=== PATIENT | male | born 1965 | race Asian ===

== ENCOUNTER 2021-09-26 20:33 | Observation (INO) | payer MEDICARE, MEDICAID, SELFPAY ==
--- NOTE | ~2021-09-26 | XR_ITS ---
EXAMINATION: XR CHEST CLINICAL INFORMATION: Chest pain COMPARISON: None TECHNIQUE: Frontal view of the chest was obtained. FINDINGS: No significant abnormality is noted involving the heart, lungs, mediastinum, bony thorax or soft tissues. Sternotomy wires from prior thoracotomy. XR/XR chest 1V IMPRESSION: Normal chest x-ray.
--- NOTE | ~2021-09-26 | CT_ITS ---
EXAMINATION: CT ANGIOGRAM OF THE CHEST WITH AND WITHOUT CONTRAST (CT PULMONARY ANGIOGRAM FOR PE) CLINICAL INFORMATION: Reason for Exam chest pain, covid positive COMPARISON: Chest x-ray 09/26/2021 TECHNIQUE: Prior to contrast administration, noncontrast localization images were obtained. Subsequently, multidetector volumetric imaging was performed from the thoracic inlet to below the diaphragms following the administration of 65 mL Omnipaque 350 intravenous contrast. Sagittal, coronal, and MIP oblique sagittal reformatted images were obtained on the CT workstation, uploaded to PACS, and reviewed. This CT examination was performed using dose optimization techniques as appropriate, variously including the following: *Automated exposure control *Adjustment of mA and/or kV according to patient size (this includes techniques or standardized protocols for targeted exams where dose is matched to indication/reason for exam; i.e. extremities or head) *Use of iterative reconstruction technique Total exam dose-length product 272 mGy-cm FINDINGS: QUALITY OF STUDY/CONTRAST BOLUS: Satisfactory. PULMONARY ARTERIES: No evidence of filling defects to suggest central or segmental pulmonary emboli. THORACIC AORTA: No aneurysm or dissection. LUNG: No focal consolidation seen. No significant nodules or masses. PLEURA: No pleural effusion or pneumothorax. MEDIASTINUM: Normal heart size. No pericardial effusion. No hilar or mediastinal lymphadenopathy. No evidence of septal bowing or right heart strain. Surgical clips in the mediastinum. CHEST WALL/AXILLA: No axillary or internal mammary lymphadenopathy. OSSEOUS STRUCTURES: No acute or suspicious osseous abnormality. Mild thoracic spondylosis. Sternotomy wires. UPPER ABDOMEN: No acute findings. No reflux of contrast into the hepatic veins to suggest elevated right heart pressures. CT/CT angio chest PE protocol IMPRESSION: 1. No evidence of central or segmental pulmonary emboli. 2. No focal consolidation. VTE: negative
[2021-09-26 20:39] VITALS: BP 165/86; BP 171/84; PULSE 66; PULSE 80; RESP 20; TEMP 37; O2SAT 98; BMI 23.2
--- NOTE | 2021-09-26 20:45 | ECG_ITS ---
Test Reason : CHEST PAIN Blood Pressure : / mmHG Vent. Rate : 068 BPM Atrial Rate : 068 BPM P-R Int : 176 ms QRS Dur : 074 ms QT Int : 386 ms P-R-T Axes : 049 019 089 degrees QTc Int : 410 ms Normal sinus rhythm Nonspecific ST abnormality Inferior leads Lateral leads ST elevation in Septal leads Abnormal ECG No previous ECGs available Referred By: Generic ED Physician Electronically Signed By:MORGAN COVINGTON MD
[2021-09-26 20:53] LABS: MANUAL DIFF FLAG NO
[2021-09-26 20:59] LABS: Basophils Percent Auto 0.2 % (0-2); Eosinophils Absolute Auto 0.1 X10*3/uL (0.0-0.4); Eosinophils Percent Auto 1.6 % (0-4); Hematocrit 38.3 % (42.0-52.0); Hemoglobin 12.7 g/dl (14.0-18.0); Imm Gran Abs Auto 0.02 X10*3/uL (0.00-0.03); Imm Gran Pct Auto 0.3 % (0.0-0.4); Lymphocytes Absolute Auto 1.5 X10*3/uL (1.2-4.9); Mean Corpuscular HGB Conc 33.2 g/dl (31.0-36.0); Mean Corpuscular Hemoglobin 28.5 pg (27.0-33.0); Mean Corpuscular Volume 86.1 fL (80.0-98.0); Mean Platelet Volume 10.8 fL (9.4-12.4); Monocytes Absolute Auto 0.8 X10*3/uL (0.1-1.2); Monocytes Percent Auto 12.3 % (2-11); Neutrophils Absolute Auto 3.9 x10*3/uL (2.0-8.3); Neutrophils Percent Auto 61.6 % (45-73); Platelet Count 182 X10*3/uL (160-400); Red Blood Count 4.45 X10*6/uL (4.60-5.80); Red Cell Distribution Width 13.6 % (11.0-16.0); White Blood Count 6.3 X10*3/uL (4.8-10.8)
[2021-09-26 21:05] LABS: INTERNATIONAL NORM RATIO 1.1 (0.9-1.1); Prothrombin Time 12.4 SEC (9.9-13.0)
[2021-09-26 21:06] LABS: D Dimer High Sensitivity 157 NG/ML
--- NOTE | 2021-09-26 21:08 | ED_ITS ---
HPI - Chest Pain General Chief Complaint: Chest Pain Stated Complaint: HEAVY CHEST PAIN W/L ARM NUMBNESS ALL DAY Time Seen by Provider: 09/26/21 21:02 History of Present Illness HPI narrative: This is a 56-year-old male with a history of coronary artery bypass graft. The patient had onset at rest today of left-sided chest pain with a feeling of numbness in his left arm. Pain has been constant. It is about 5/10. Patient has did recently have hemorrhoid surgery at [facility] and states he had had an EKG done there prior to surgery. The patient has slight shortness of breath, denies nausea. He did note earlier tonight that his blood pressure was elevated. He denies any pain or swelling in his legs. The patient notes that since his hemorrhoid surgery done earlier this week at [facility] he has had severe pain around the rectum. The hemorrhoids were external. The patient has been using oxycodone and tramadol and ibuprofen without relief. Related Data Home Medications Medication Instructions Recorded Confirmed aspirin 81 mg tablet 81 mg PO DAILY 09/26/21 09/26/21 ibuprofen 600 mg tablet 600 tab PO DAILY 09/26/21 09/26/21 lactulose 10 gram/15 mL oral 15 ml PO DAILY 09/26/21 09/26/21 solution lorazepam 1 mg tablet 1 mg PO QID PRN 09/26/21 09/26/21 metformin 500 mg tablet,extended 2 tab PO BID 09/26/21 09/26/21 release 24 hr metoprolol tartrate 25 mg tablet 1 tab PO BID 09/26/21 09/26/21 oxycodone 5 mg tablet 1 tab PO QID PRN 09/26/21 09/26/21 pantoprazole 40 mg tablet,delayed 1 tab PO DAILY 09/26/21 09/26/21 release rosuvastatin 20 mg tablet 1 tab PO BEDTIME 09/26/21 09/26/21 sitagliptin 100 mg tablet (Januvia) 1 tab PO DAILY 09/26/21 09/26/21 tamsulosin 0.4 mg capsule 1 cap PO DAILY 09/26/21 09/26/21 tramadol 50 mg tablet 1 tab PO Q6H PRN 09/26/21 09/26/21 Allergies Allergy/AdvReac Type Severity Reaction Status Date / Time No Known Allergies Allergy Verified 09/26/21 20:45 Review of Systems Review of Systems: Yes all other systems are reviewed and are negative Constitutional: Constitutional: Reports as per HPI, Denies excessive sweating and Denies fever(s) Eyes: Eyes: Reports as per HPI and Reports no additional eye complaints ENT: Reports system reviewed and no additional complaints, except as d ocumented, Reports as per HPI, Denies nasal congestion, Denies nasal discharge and Denies sore throat Cardiovascular: Cardiovascular: Reports as per HPI, Reports chest pain and Reports dyspnea Respiratory: Respiratory: Reports as per HPI, Denies cough and Reports dyspnea Gastrointestinal: Gastrointestinal: Reports as per HPI, Denies abdominal pain, Denies diarrhea, Denies nausea and Denies vomiting Genitourinary: Genitourinary: Reports as per HPI, Denies hematuria, Denies dysuria and Denies urinary frequency Musculoskeletal: Musculoskeletal: Reports no additional musculoskeletal complaints and Denies numbness Integumentary/Breasts: Skin/Breast: Reports as per HPI and Denies rash Neurologic: Reports as per HPI, Denies focal weakness and Denies numbness Psychiatric: Psychiatric: Reports no additional psychiatric complaints and Reports as per HPI Endocrine: Endocrine: Reports no additional endocrine complaints, Reports as per HPI and Denies excessive sweating Hematologic/Lymphatic: Hematologic/Lymphatic: Reports no additional hematologic/lymphatic complaints, Reports as per HPI and Reports other (No peripheral edema) [facility] Past Medical History Medical History (Updated 09/26/21 @ 23:44 by Beau Reid MD) Hemorrhoids Hyperlipemia Hypertension Surgical History (Updated 09/26/21 @ 20:43 by Judi Bolanos) Aortocoronary bypass status Social History Social History Advance Directives: No Advance Directives Information Provided: No Physical Exam Vital Signs: Vital Signs: Last Vital Signs Temp 97.4 F 09/26/21 22:00 Pulse 58 09/26/21 22:00 Resp 18 09/26/21 22:00 BP 159/71 H 09/26/21 22:00 Pulse Ox 98 09/26/21 22:00 Body Mass Index 23.2 GI: Rectal Exam - Male: Yes Visual inspection abnormal (Healing wound from external hemorrhoid surgery, no swelling, no erythema) MDM - Chest Pain MDM Narrative Medical decision making narrative: Patient with known coronary artery disease, status post coronary artery procedures previously, has had left-sided chest pain with some feeling of numbness in his left arm since about 14:00, onset at rest. EKG did show ST elevation in lead V1 and V2 with ST depression in the inferior lateral leads. These were all subtle but compared to an EKG dated 01/22/2021 from [facility], did appear to be acute changes, especially prominent in lead V2. Troponin x2 is negative. Patient was improved with nitroglycerin sublingual. Patient was given aspirin Plavix. Heparin was held secondary to recent surgery. Case was discussed with Dr. Ware of Cardiology, who agreed with admission and rule out of MT. case was also discussed with the admitting hospitalist, Dr. Kulkarni Critical care time for this life-threatening illness exclusive of all other billable procedures was approximately 35 minutes including initial evaluation of the patient, ordering tests, x-ray interpretation, EKG interpretation, medical consultation, documentation, reevaluation. Lab Data Attestation: I reviewed the patient's lab results. Result diagrams: 09/26/21 20:48 09/26/21 20:48 Labs: Lab Results 09/26/21 09/26/21 09/26/21 Range/Units 20:48 20:48 20:48 WBC 6.3 (4.8-10.8) X10*3/uL RBC 4.45 L (4.60-5.80) X10*6/uL Hgb 12.7 L (14.0-18.0) g/dl Hct 38.3 L (42.0-52.0) % MCV 86.1 (80.0-98.0) fL MCH 28.5 (27.0-33.0) pg MCHC 33.2 (31.0-36.0) g/dl RDW 13.6 (11.0-16.0) % Plt Count 182 (160-400) X10*3/uL MPV 10.8 (9.4-12.4) fL Immature Gran % (Auto) 0.3 (0.0-0.4) % Neut % (Auto) 61.6 (45-73) % Lymph % (Auto) 24.0 (20-40) % Bulloch % (Auto) 12.3 H (2-11) % Eos % (Auto) 1.6 (0-4) % Baso % (Auto) 0.2 (0-2) % Lymph # (Auto) 1.5 (1.2-4.9) X10*3/uL Bulloch # (Auto) 0.8 (0.1-1.2) X10*3/uL Eos # (Auto) 0.1 (0.0-0.4) X10*3/uL Baso # (Auto) 0.0 (0.0-0.2) X10*3/uL Abs Immat Gran (auto) 0.02 (0.00-0.03) X10*3/uL Absolute Neuts (auto) 3.9 (2.0-8.3) x10*3/uL Absolute Nucleated RBC 0.000 (0.0-0.012) X10*3/uL Nucleated RBC % (auto) 0.0 (0.0-0.2) /100WBC PT (9.9-13.0) SEC INR (0.9-1.1) APTT (24.1-38.0) SEC D-Dimer High Sensitivty NG/ML Sodium 135 (135-145) mmol/L Potassium 4.2 (3.3-5.1) mmol/L Chloride 106 (96-108) mmol/L Carbon Dioxide 17 L (22-29) mmol/L Anion Gap 16 (12-20) BUN 7 L (9-16) mg/dL Creatinine 0.72 (0.5-1.4) mg/dL Estim Creat Clear Calc 109.5 Estimated GFR > 60 Random Glucose 119 H (60-115) mg/dL Calcium 9.4 (8.4-10.2) mg/dL Troponin I High Sens 3.7 (<3.5-35.0) ng/L 09/26/21 09/26/21 09/26/21 Range/Units 20:48 22:00 22:37 WBC (4.8-10.8) X10*3/uL RBC (4.60-5.80) X10*6/uL Hgb (14.0-18.0) g/dl Hct (42.0-52.0) % MCV (80.0-98.0) fL MCH (27.0-33.0) pg MCHC (31.0-36.0) g/dl RDW (11.0-16.0) % Plt Count (160-400) X10*3/uL MPV (9.4-12.4) fL Immature Gran % (Auto) (0.0-0.4) % Neut % (Auto) (45-73) % Lymph % (Auto) (20-40) % Bulloch % (Auto) (2-11) % Eos % (Auto) (0-4) % Baso % (Auto) (0-2) % Lymph # (Auto) (1.2-4.9) X10*3/uL Bulloch # (Auto) (0.1-1.2) X10*3/uL Eos # (Auto) (0.0-0.4) X10*3/uL Baso # (Auto) (0.0-0.2) X10*3/uL Abs Immat Gran (auto) (0.00-0.03) X10*3/uL Absolute Neuts (auto) (2.0-8.3) x10*3/uL Absolute Nucleated RBC (0.0-0.012) X10*3/uL Nucleated RBC % (auto) (0.0-0.2) /100WBC PT 12.4 (9.9-13.0) SEC INR 1.1 (0.9-1.1) APTT 36.1 (24.1-38.0) SEC D-Dimer High Sensitivty 157 NG/ML Sodium (135-145) mmol/L Potassium (3.3-5.1) mmol/L Chloride (96-108) mmol/L Carbon Dioxide (22-29) mmol/L Anion Gap (12-20) BUN (9-16) mg/dL Creatinine (0.5-1.4) mg/dL Estim Creat Clear Calc Estimated GFR Random Glucose (60-115) mg/dL Calcium (8.4-10.2) mg/dL Troponin I High Sens 3.8 (<3.5-35.0) ng/L Imaging Data Chest x-ray: Radiologist's impression: No acute pathology-normal chest x-ray ECG Data ECG #1: Attestation: I personally reviewed and interpreted this ECG as follows: ECG interpretation date: 09/26/21 ECG interpretation time: 21:13 Interpretation: Sinus rhythm with a rate of 68. Slight ST elevation in leads V1 V2, nearly a mm in lead V2. Slight ST depression in leads V4 V5 as well as in lead 2. Slight T-wave flattening/inversion in leads 1 and L Discharge Plan Discharge Clinical Impression: Chest pain, ACS (acute coronary syndrome) Patient Disposition: Admitted As Inpatient
[2021-09-26 21:14] LABS: Anion Gap 16 (12-20); Blood Urea Nitrogen 7 mg/dL (9-16); Calcium 9.4 mg/dL (8.4-10.2); Carbon Dioxide 17 mmol/L (22-29); Chloride 106 mmol/L (96-108); Creatinine Clr Calc Pharmacy 109.5; Estimated Glomerular Filt Rate > 60; Glucose Random 119 mg/dL (60-115); Potassium 4.2 mmol/L (3.3-5.1); Sodium 135 mmol/L (135-145)
[2021-09-26 21:18] LABS: Troponin-I High Sensitivity 3.7 ng/L (<3.5-35.0)
[2021-09-26 21:38] VITALS: BP 151/83; PULSE 64
[2021-09-26] MEDS: Clopidogrel Bisulfate 300 MG TABLET PO (21:38)
[2021-09-26] MEDS: Aspirin 81 MG TAB.CHEW 324 MG PO (21:38)
[2021-09-26] MEDS: Metoprolol Tartrate 25 MG TABLET PO (21:38)
--- NOTE | 2021-09-26 21:46 | PC.NURSE ---
PT MEDICATED PER EMAR. DR. CARRIZALES IN ROOM FOR RE-EVAL. PT C/O PAIN TO CHEST, LEFT ARM, AND RECTUM AREA D/T HEMORRHOID SURGERY. PT AWAITING FOR NITRO FROM THE PHARMACY. PT ON MONITOR. VS OBTAINED. PT URINATING IN THE URINAL. URINE SAMPLE NOT ORDERED AT THIS TIME. WILL CONTINUE TO MONITOR PT.
[2021-09-26 21:54] VITALS: RESP 16
[2021-09-26] MEDS: Morphine Sulfate 4 MG/ML CARTRIDGE IVPUSH (21:54)
[2021-09-26 22:00] VITALS: BP 159/71; PULSE 58; RESP 18; TEMP 36.3; O2SAT 98
[2021-09-26 22:19] LABS: Partial Thromboplastin Time 36.1 SEC (24.1-38.0)
[2021-09-26 23:13] LABS: Troponin-I High Sensitivity 3.8 ng/L (<3.5-35.0)
--- NOTE | 2021-09-26 23:15 | PC.NURSE ---
PT REMAINS ALERT, RESPIRAITONS EASY, N/L. SKIN W/D. PT RATING CHEST PAIN AND RECTAL PAIN 02/14. PT BEING ADMITTED AT THIS TIME. PT REMAINS ON MONITOR.
--- NOTE | 2021-09-26 23:44 | PC.NURSE ---
MED REC DONE AT THIS TIME.
[2021-09-27 00:48] VITALS: BP 149/73; PULSE 59; RESP 16; TEMP 36.9; O2SAT 98
[2021-09-27 01:13] LABS: COVID-19 Test Positive (Negative)
[2021-09-27 04:00] VITALS: BP 165/74; PULSE 65; RESP 16; O2SAT 97
[2021-09-27] MEDS: Acetaminophen 325 MG TABLET 650 MG PO (04:59)
[2021-09-27] MEDS: traMADoL HCL 50 MG TABLET PO (05:00)
--- NOTE | 2021-09-27 05:07 | PC.NURSE ---
pt awake and requesting pain meds rating pain to rectal area 8/10. pt medicated as per emar for pain. Emptied 200ml of clear yellow urine from urinal. pt denies any other requests or complaints at this time. pt given apple daisy to drink. pt remains on monitor and VS obtained. will continue to monitor pt.
--- NOTE | 2021-09-27 05:23 | PC.NURSE ---
call howard answered pt requesting to ambulate to restroom with steady even gait w/o incident.
[2021-09-27 06:30] LABS: MANUAL DIFF FLAG NO
--- NOTE | 2021-09-27 06:45 | P.HPHOSP_ITS ---
History of Present Illness Date of Service: 09/26/21 Chief Complaint: Chest pain Patient was seen and admitted on 09/26/21 56-year-old male with past medical history of diabetes, hypertension, coronary artery disease status post CABG presents to the hospital with complaints of left-sided chest pain. Patient reports pain started on the day of presentation, constant, 10, is heavy in nature, radiating to his left arm, worse with inspiration and cough . No relieving factors. Patient reports that he also just recently had hemorrhoid repair surgery, and has significant pain in his rectum and some bleeding with bowel movements. Patient is constipated. He otherwise denies any shortness of breath, reports a mild dry cough that started this morning. He no abdominal pain nausea or vomiting, no diarrhea. No urinary symptoms and no lower extremity edema. No numbness or weakness. On arrival to the ED patient hemodynamically stable with no significant abnormal vitals Labs are significant for WBC of 6.3 hemoglobin of 12.7 with hematocrit of 38.3, troponin of 3.7 and 3.8, he is also COVID-19 positive Chest x-ray shows normal findings Patient is not hypoxic Review of Systems Review of Systems: Yes all other systems are reviewed and are negative [facility] Medical History (Updated 09/27/21 @ 06:53 by Sarwat Kulkarni MD) Coronary artery disease Diabetes Hemorrhoids Hyperlipemia Hypertension Family History (Updated 09/27/21 @ 06:52 by Sarwat Kulkarni MD) Mother Diabetes Pertinent family history: No history of coronary artery disease in family Surgical History (Updated 09/27/21 @ 06:51 by Sarwat Kulkarni MD) Aortocoronary bypass status History of coronary artery bypass graft Social History (Updated 09/27/21 @ 06:52 by Sarwat Kulkarni MD) Alcohol intake: former Patient Tobacco Use Status: Never used Tobacco Use of substances other than those prescribed or required for medical reasons: No Advance Directives: No Advance Directives Information Provided: No Meds Allergies Allergy/AdvReac Type Severity Reaction Status Date / Time No Known Allergies Allergy Verified 09/26/21 20:45 Active Medications: Current Medications Acetaminophen (Acetaminophen 325 Mg Tablet) 650 mg PO Q6H PRN PRN Reason: Pain, Mild (Pain Scale 1-3) Last Admin: 09/27/21 04:59 Dose: 650 mg Documented by: Nitroglycerin (Nitroglycerin 0.4 Mg Tab.Subl) 0.4 mg SUBLINGUAL Q5M PRN PRN Reason: Chest Pain Ondansetron HCl (Ondansetron Hcl 4 Mg/2 Ml Vial) 4 mg IVPUSH Q8H PRN PRN Reason: Nausea and Vomiting Polyethylene Glycol (Polyethylene Glycol 3350 17 Gm Powd.Pack) 17 gm PO DAILY COTY Tramadol HCl (Tramadol Hcl 50 Mg Tablet) 50 mg PO Q6H PRN PRN Reason: Pain, Severe (Pain Scale 7-10) Last Admin: 09/27/21 05:00 Dose: 50 mg Documented by: Home Medications Medication Instructions Recorded Confirmed Last Taken Type aspirin 81 mg tablet 81 mg PO DAILY 09/26/21 09/26/21 Unknown History ibuprofen 600 mg tablet 600 tab PO DAILY 09/26/21 09/26/21 Unknown History lactulose 10 gram/15 mL oral 15 ml PO DAILY 09/26/21 09/26/21 Unknown History solution lorazepam 1 mg tablet 1 mg PO QID PRN 09/26/21 09/26/21 Unknown History metformin 500 mg tablet,extended 2 tab PO BID 09/26/21 09/26/21 Unknown History release 24 hr metoprolol tartrate 25 mg tablet 1 tab PO BID 09/26/21 09/26/21 Unknown History oxycodone 5 mg tablet 1 tab PO QID PRN 09/26/21 09/26/21 Unknown History pantoprazole 40 mg tablet,delayed 1 tab PO DAILY 09/26/21 09/26/21 Unknown History release rosuvastatin 20 mg tablet 1 tab PO BEDTIME 09/26/21 09/26/21 Unknown History sitagliptin 100 mg tablet (Januvia) 1 tab PO DAILY 09/26/21 09/26/21 Unknown History tamsulosin 0.4 mg capsule 1 cap PO DAILY 09/26/21 09/26/21 Unknown History tramadol 50 mg tablet 1 tab PO Q6H PRN 09/26/21 09/26/21 Unknown History Physical Exam Vital Signs and Narrative: Vital Signs: Last Vital Signs Temp 98.4 F 09/27/21 00:48 Pulse 65 09/27/21 04:00 Resp 16 09/27/21 04:00 BP 165/74 H 09/27/21 04:00 Pulse Ox 97 09/27/21 04:00 Body Mass Index 23.2 Const: General: cooperative and no acute distress Orientation/consciousness: patient oriented x3 Eyes: General: appearance normal, both eyes and all related structures Resp: Effort & Inspection: normal respiratory effort Auscultation: clear to auscultation bilaterally Cardio: Rate: regular rate Rhythm: regular rhythm GI: Palpation (GI): Soft to palpation Auscultation: normal bowel sounds Skin: General skin exam: no rashes or lesions noted Neuro: General: patient oriented x3 Cognition (Neuro): normal cognition Extrem: General: Yes normal to inspection and Yes no pedal edema Results Labs CBC and Chem 7: 09/26/21 20:48 09/26/21 20:48 Labs: Laboratory Results - last 24 hr 09/26/21 09/26/21 09/26/21 20:48 20:48 20:48 MCV 86.1 MCH 28.5 MCHC 33.2 RDW 13.6 Plt Count 182 MPV 10.8 Immature Gran % (Auto) 0.3 Neut % (Auto) 61.6 Lymph % (Auto) 24.0 Worth % (Auto) 12.3 H Eos % (Auto) 1.6 Baso % (Auto) 0.2 Lymph # (Auto) 1.5 Worth # (Auto) 0.8 Eos # (Auto) 0.1 Baso # (Auto) 0.0 Abs Immat Gran (auto) 0.02 Absolute Neuts (auto) 3.9 Absolute Nucleated RBC 0.000 Nucleated RBC % (auto) 0.0 PT INR APTT D-Dimer High Sensitivty Anion Gap 16 Estim Creat Clear Calc 109.5 Estimated GFR > 60 Random Glucose 119 H Calcium 9.4 Troponin I High Sens 3.7 COVID-19 ([facility]) COVID-19 Clin Com 09/26/21 09/26/21 09/26/21 20:48 22:00 22:37 MCV MCH MCHC RDW Plt Count MPV Immature Gran % (Auto) Neut % (Auto) Lymph % (Auto) Worth % (Auto) Eos % (Auto) Baso % (Auto) Lymph # (Auto) Worth # (Auto) Eos # (Auto) Baso # (Auto) Abs Immat Gran (auto) Absolute Neuts (auto) Absolute Nucleated RBC Nucleated RBC % (auto) PT 12.4 INR 1.1 APTT 36.1 D-Dimer High Sensitivty 157 Anion Gap Estim Creat Clear Calc Estimated GFR Random Glucose Calcium Troponin I High Sens 3.8 COVID-19 ([facility]) COVID-19 Clin Com 09/27/21 01:00 MCV MCH MCHC RDW Plt Count MPV Immature Gran % (Auto) Neut % (Auto) Lymph % (Auto) Worth % (Auto) Eos % (Auto) Baso % (Auto) Lymph # (Auto) Worth # (Auto) Eos # (Auto) Baso # (Auto) Abs Immat Gran (auto) Absolute Neuts (auto) Absolute Nucleated RBC Nucleated RBC % (auto) PT INR APTT D-Dimer High Sensitivty Anion Gap Estim Creat Clear Calc Estimated GFR Random Glucose Calcium Troponin I High Sens COVID-19 ([facility]) Positive A COVID-19 Clin Com See Note ECG Interpretation: EKG shows normal sinuswith no ST T wave changes Imaging Radiologist's Impressions: Impressions Chest X-Ray 09/26/21 20:45 IMPRESSION: Normal chest x-ray. Assessment and Plan (1) Chest pain: Status: Acute (2) SARS-CoV-2 positive: Status: Acute 56-year-old male with past medical history of coronary artery disease, diabetes, hepatitis anemia presents to the hospital with chest pain admitted for ACS rule out # chest pain -mostly pleuritic in nature - no EKG changes, troponin negative x2 - given his history of coronary artery disease and CABG, case was discussed with Cardiology by ED physician and patient will be admitted for ACS rule out - as patient also found to have COVID-19 positive, will order CT angiogram with PE protocol to rule out PE as a cause of his chest pain # COVID-19 positive - asymptomatic except for a mild cough, no hypoxia - chest x-ray negative - at this time will monitor # coronary artery disease - continue aspirin, metoprolol # hyperlipidemia - continue statin # diabetes - hold oral antihyperglycemics - will add low-dose sliding scale insulin - diabetic diet # recent hemorrhoid surgery - continue pain medications - will start him on bowel regimen to avoid constipation DVT prophylaxis: Lovenox Quality Stroke Does the patient have a stroke diagnosis?: No VTE Prior VTE?: No VTE Risk Level:: Medical - low VTE Device Contraindication: Treatment Not Indicated VTE Drug Contraindication: Treatment Not Indicated
[2021-09-27 06:58] LABS: Anion Gap 14 (12-20); Blood Urea Nitrogen 7 mg/dL (9-16); Calcium 9.7 mg/dL (8.4-10.2); Carbon Dioxide 23 mmol/L (22-29); Chloride 105 mmol/L (96-108); Creatinine Clr Calc Pharmacy 109.5; Estimated Glomerular Filt Rate > 60; Glucose Random 127 mg/dL (60-115); Potassium 3.7 mmol/L (3.3-5.1); Sodium 138 mmol/L (135-145)
[2021-09-27 07:04] LABS: Basophils Percent Auto 0.3 % (0-2); Eosinophils Absolute Auto 0.1 X10*3/uL (0.0-0.4); Eosinophils Percent Auto 0.8 % (0-4); Hematocrit 37.6 % (42.0-52.0); Hemoglobin 12.8 g/dl (14.0-18.0); Imm Gran Abs Auto 0.01 X10*3/uL (0.00-0.03); Imm Gran Pct Auto 0.2 % (0.0-0.4); Lymphocytes Absolute Auto 1.7 X10*3/uL (1.2-4.9); Lymphocytes Percent Auto 27.5 % (20-40); Mean Corpuscular Hemoglobin 28.4 pg (27.0-33.0); Mean Corpuscular Volume 83.6 fL (80.0-98.0); Mean Platelet Volume 11.2 fL (9.4-12.4); Monocytes Absolute Auto 0.9 X10*3/uL (0.1-1.2); Monocytes Percent Auto 14.4 % (2-11); Neutrophils Absolute Auto 3.5 x10*3/uL (2.0-8.3); Neutrophils Percent Auto 56.8 % (45-73); Platelet Count 192 X10*3/uL (160-400); Red Cell Distribution Width 13.7 % (11.0-16.0); White Blood Count 6.1 X10*3/uL (4.8-10.8)
[2021-09-27 07:35] VITALS: BP 155/82; PULSE 61; RESP 16; O2SAT 96
--- NOTE | 2021-09-27 07:36 | PC.NURSE ---
Off unit for CTA, vitals stable. denies cp but reports persistent 10/10 rectal pain
[2021-09-27] MEDS: iohexoL 350 MG/ML 100 ML INFUS..BTL 65 ML IV (07:52)
[2021-09-27 08:14] LABS: Glucose, Whole Blood 105 mg/dL (60-115)
[2021-09-27] MEDS: Lactulose 20 GM/30 ML SOLUTION 10 GM PO (08:21)
[2021-09-27] MEDS: polyethylene glycoL 3350 17 GM POWD.PACK PO (08:21)
[2021-09-27 08:23] VITALS: BP 155/82; PULSE 61
[2021-09-27] MEDS: Tamsulosin HCL 0.4 MG CAPSULE PO (08:23)
[2021-09-27] MEDS: Metoprolol Tartrate 25 MG TABLET PO (08:23)
[2021-09-27] MEDS: Omeprazole 20 MG CAPSULE.DR PO (08:23)
[2021-09-27 08:28] LABS: Estimated Average Glucose 131 mg/dL; Hemoglobin A1C 149.1452 umol/L; Hemoglobin A1c % 6.2 %
[2021-09-27] MEDS: Aspirin 81 MG TAB.CHEW PO (08:47)
--- NOTE | 2021-09-27 08:52 | PC.NURSE ---
seen by Cardiology, no new changes. NSR on monitor. Pt continues to deny CP or SOB. Reports discomfort to rectum, reports minimal bleeding to site. Skinn color normal for ethnicity, warm/dry. Tolerated crackers and tea for breakfast.
--- NOTE | 2021-09-27 10:50 | PM.CNCAR ---
History of Present Illness History of Present Illness Date of Service: 09/27/21 Requesting physician: Tj Saldana Chief complaint: R/O ACS Narrative: 56-year-old gentleman who is status post bypass surgery in the past and presenting with chest pain is at he underwent bypass surgery approximately 3 years ago for shortness of breath and has been following Dr. Patel. Last week he underwent hemorrhoidectomy and his aspirin was held. Yesterday he noted left-sided chest discomfort which was the dull ache along with left arm discomfort. He has never experienced any chest discomfort before. Was also coughing. With these symptoms he presented to the emergency department his EKG did not show any significant changes his troponins have been negative. He tested positive for COVID-[address] PA to rule out pulmonary embolism which was normal too. He is currently pain free. Blood pressure is elevated. [facility] Past Medical History Medical History (Updated 09/27/21 @ 10:53 by Miguel Ware MD) Coronary artery disease Diabetes Hemorrhoids Hyperlipemia Hypertension Family History Family History (Updated 09/27/21 @ 06:52 by Sarwat Kulkarni MD) Mother Diabetes Surgical History Surgical History (Updated 09/27/21 @ 06:51 by Sarwat Kulkarni MD) Aortocoronary bypass status History of coronary artery bypass graft Social History Social History (Updated 09/27/21 @ 06:52 by Sarwat Kulkarni MD) Alcohol intake: former Patient Tobacco Use Status: Never used Tobacco Use of substances other than those prescribed or required for medical reasons: No Advance Directives: No Advance Directives Information Provided: No Meds Allergies Allergy/AdvReac Type Severity Reaction Status Date / Time No Known Allergies Allergy Verified 09/26/21 20:45 Active Medications: Current Medications Acetaminophen (Acetaminophen 325 Mg Tablet) 650 mg PO Q6H PRN PRN Reason: Pain, Mild (Pain Scale 1-3) Last Admin: 09/27/21 04:59 Dose: 650 mg Documented by: Aspirin (Aspirin 81 Mg Tab.Chew) 81 mg PO DAILY COTY Last Admin: 09/27/21 08:47 Dose: 81 mg Documented by: Atorvastatin Calcium (Atorvastatin Calcium 80 Mg Tablet) 80 mg PO BEDTIME COTY Dextrose (Dextrose 50 % 25 Gm/50 Ml Vial) 25 gm IVPUSH Q15M PRN; Protocol PRN Reason: per Hypoglycemia Standing Ord. Glucose (Glucose Gel 15 Gm Gel..Gram.) 15 gm PO Q15M PRN; Protocol PRN Reason: per Hypoglycemia Standing Ord. Insulin Human Lispro (Insulin Lispro 100 Unit/Ml 3 Ml Vial) 0 unit SUBCUT QIDACHS [facility]; Protocol Last Admin: 09/27/21 08:22 Dose: Not Given Documented by: Lactulose (Lactulose 20 Gm/30 Ml Solution) 10 gm PO DAILY [facility] Last Admin: 09/27/21 08:21 Dose: 10 gm Documented by: Lorazepam (Lorazepam 1 Mg Tablet) 1 mg PO QID PRN PRN Reason: Anxiety Metoprolol Tartrate (Metoprolol Tartrate 25 Mg Tablet) 25 mg PO BID [facility]; Protocol Last Admin: 09/27/21 08:23 Dose: 25 mg Documented by: Nitroglycerin (Nitroglycerin 0.4 Mg Tab.Subl) 0.4 mg SUBLINGUAL Q5M PRN PRN Reason: Chest Pain Omeprazole (Omeprazole 20 Mg Capsule.Dr) 20 mg PO DAILY [facility] Last Admin: 09/27/21 08:23 Dose: 20 mg Documented by: Ondansetron HCl (Ondansetron Hcl 4 Mg/2 Ml Vial) 4 mg IVPUSH Q8H PRN PRN Reason: Nausea and Vomiting Polyethylene Glycol (Polyethylene Glycol 3350 17 Gm Powd.Pack) 17 gm PO DAILY [facility] Last Admin: 09/27/21 08:21 Dose: 17 gm Documented by: Tamsulosin HCl (Tamsulosin Hcl 0.4 Mg Capsule) 0.4 mg PO DAILY [facility] Last Admin: 09/27/21 08:23 Dose: 0.4 mg Documented by: Tramadol HCl (Tramadol Hcl 50 Mg Tablet) 50 mg PO Q6H PRN PRN Reason: Pain, Severe (Pain Scale 7-10) Last Admin: 09/27/21 05:00 Dose: 50 mg Documented by: Home Medications Medication Instructions Recorded Confirmed Last Taken Type ibuprofen 600 mg tablet 600 tab PO DAILY 09/26/21 09/26/21 Unknown History lactulose 10 gram/15 mL oral 15 ml PO DAILY 09/26/21 09/26/21 Unknown History solution lorazepam 1 mg tablet 1 mg PO QID PRN 09/26/21 09/26/21 Unknown History metformin 500 mg tablet,extended 2 tab PO BID 09/26/21 09/26/21 Unknown History release 24 hr metoprolol tartrate 25 mg tablet 1 tab PO BID 09/26/21 09/26/21 Unknown History oxycodone 5 mg tablet 1 tab PO QID PRN 09/26/21 09/26/21 Unknown History pantoprazole 40 mg tablet,delayed 1 tab PO DAILY 09/26/21 09/26/21 Unknown History release rosuvastatin 20 mg tablet 1 tab PO BEDTIME 09/26/21 09/26/21 Unknown History sitagliptin 100 mg tablet (Januvia) 1 tab PO DAILY 09/26/21 09/26/21 Unknown History tamsulosin 0.4 mg capsule 1 cap PO DAILY 09/26/21 09/26/21 Unknown History tramadol 50 mg tablet 1 tab PO Q6H PRN 09/26/21 09/26/21 Unknown History aspirin 81 mg chewable tablet 81 mg PO DAILY 09/27/21 09/27/21 Unknown History levothyroxine 50 mcg tablet 1 tab PO DAILY 09/27/21 09/27/21 Unknown History Physical Exam Vital Signs: Vital Signs: Last Vital Signs Temp 98.4 F 09/27/21 00:48 Pulse 61 09/27/21 08:23 Resp 16 09/27/21 07:35 BP 155/82 H 09/27/21 08:23 Pulse Ox 96 09/27/21 07:35 Body Mass Index 23.2 GENERAL APPEARANCE: in no acute distress, pleasant. NECK: no carotid bruit, no jugular venous distention. SKIN: no suspicious lesions, warm and dry. HEART: no murmurs, regular rate and rhythm. LUNGS: clear to auscultation bilaterally. ABDOMEN: soft, nontender. EXTREMITIES: no edema. PERIPHERAL PULSES: equal. NEUROLOGIC: No gross deficits, AAO X 3 Objective Labs and Meds Result diagrams: 09/27/21 06:19 09/27/21 06:19 Lab results: Laboratory Results - last 24 hr 09/26/21 09/26/21 09/26/21 20:48 20:48 20:48 WBC 6.3 RBC 4.45 L Hgb 12.7 L Hct 38.3 L MCV 86.1 MCH 28.5 MCHC 33.2 RDW 13.6 Plt Count 182 MPV 10.8 Immature Gran % (Auto) 0.3 Neut % (Auto) 61.6 Lymph % (Auto) 24.0 Hawkins % (Auto) 12.3 H Eos % (Auto) 1.6 Baso % (Auto) 0.2 Lymph # (Auto) 1.5 Hawkins # (Auto) 0.8 Eos # (Auto) 0.1 Baso # (Auto) 0.0 Abs Immat Gran (auto) 0.02 Absolute Neuts (auto) 3.9 Absolute Nucleated RBC 0.000 Nucleated RBC % (auto) 0.0 PT INR APTT D-Dimer High Sensitivty Sodium 135 Potassium 4.2 Chloride 106 Carbon Dioxide 17 L Anion Gap 16 BUN 7 L Creatinine 0.72 Estim Creat Clear Calc 109.5 Estimated GFR > 60 POC Glucose Random Glucose 119 H Estimat Average Glucose Hemoglobin A1c % Calcium 9.4 Troponin I High Sens 3.7 COVID-19 ([facility]) COVID-19 [employer] 09/26/21 09/26/21 09/26/21 20:48 22:00 22:37 WBC RBC Hgb Hct MCV MCH MCHC RDW Plt Count MPV Immature Gran % (Auto) Neut % (Auto) Lymph % (Auto) Hawkins % (Auto) Eos % (Auto) Baso % (Auto) Lymph # (Auto) Hawkins # (Auto) Eos # (Auto) Baso # (Auto) Abs Immat Gran (auto) Absolute Neuts (auto) Absolute Nucleated RBC Nucleated RBC % (auto) PT 12.4 INR 1.1 APTT 36.1 D-Dimer High Sensitivty 157 Sodium Potassium Chloride Carbon Dioxide Anion Gap BUN Creatinine Estim Creat Clear Calc Estimated GFR POC Glucose Random Glucose Estimat Average Glucose Hemoglobin A1c % Calcium Troponin I High Sens 3.8 COVID-19 ([facility]) COVID-[employer] 09/27/21 09/27/21 09/27/21 01:00 06:19 06:19 WBC 6.1 RBC 4.50 L Hgb 12.8 L Hct 37.6 L MCV 83.6 MCH 28.4 MCHC 34.0 RDW 13.7 Plt Count 192 MPV 11.2 Immature Gran % (Auto) 0.2 Neut % (Auto) 56.8 Lymph % (Auto) 27.5 Hawkins % (Auto) 14.4 H Eos % (Auto) 0.8 Baso % (Auto) 0.3 Lymph # (Auto) 1.7 Hawkins # (Auto) 0.9 Eos # (Auto) 0.1 Baso # (Auto) 0.0 Abs Immat Gran (auto) 0.01 Absolute Neuts (auto) 3.5 Absolute Nucleated RBC 0.000 Nucleated RBC % (auto) 0.0 PT INR APTT D-Dimer High Sensitivty Sodium 138 Potassium 3.7 Chloride 105 Carbon Dioxide 23 Anion Gap 14 BUN 7 L Creatinine 0.72 Estim Creat Clear Calc 109.5 Estimated GFR > 60 POC Glucose Random Glucose 127 H Estimat Average Glucose Hemoglobin A1c % Calcium 9.7 Troponin I High Sens COVID-19 ([facility]) Positive A COVID-19 Clin Com See Note 09/27/21 09/27/21 06:19 08:08 WBC RBC Hgb Hct MCV MCH MCHC RDW Plt Count MPV Immature Gran % (Auto) Neut % (Auto) Lymph % (Auto) Hawkins % (Auto) Eos % (Auto) Baso % (Auto) Lymph # (Auto) Hawkins # (Auto) Eos # (Auto) Baso # (Auto) Abs Immat Gran (auto) Absolute Neuts (auto) Absolute Nucleated RBC Nucleated RBC % (auto) PT INR APTT D-Dimer High Sensitivty Sodium Potassium Chloride Carbon Dioxide Anion Gap BUN Creatinine Estim Creat Clear Calc Estimated GFR POC Glucose 105 Random Glucose Estimat Average Glucose 131 Hemoglobin A1c % 6.2 Calcium Troponin I High Sens COVID-19 ([facility]) COVID-19 Clin Com Imaging Radiologist's impression: Impressions Chest X-Ray 09/26/21 20:45 IMPRESSION: Normal chest x-ray. Chest CTA 09/27/21 07:53 IMPRESSION: 1. No evidence of central or segmental pulmonary emboli. 2. No focal consolidation. VTE: negative Assessment and Plan (1) Chest pain: Status: Acute (2) Hypertension: Status: Acute Pleasant 56-year-old gentleman who is presenting with chest pain. He has known history of bypass surgery. EKG and troponins are negative. He has never had chest discomfort before and his indication for bypass surgery was dyspnea on exertion. CT pulmonary angiogram did not show pulmonary embolism. Blood pressure is elevated. Please add amlodipine 2.5 mg once a day. I think his pain is likely noncardiac in origin. He can have further workup with Dr. Patel as outpatient. Thank you for allowing me to participate in the care of your patient. Please feel free to contact me if you have any questions. Procedures Date of Service Date of Service: 09/27/21
--- NOTE | 2021-09-27 11:34 | PHA.MEDREC ---
Pharmacy Consult ? Medication Reconciliation Pharmacy has reviewed the medication reconciliation as completed by weekend RN
[2021-09-27 13:12] LABS: Glucose, Whole Blood 112 mg/dL (60-115)
--- NOTE | 2021-09-27 13:14 | PM.DS ---
DS: Providers Provider Date of Service: 09/27/21 Date of admission: 09/26/21 23:14 Primary care physician: Unknown Physician Consults: 09/27/21 00:48 Consult to Cardiology Routine Consulting Provider: Miguel Ware Reason for consultation: chest pain Has provider been notified: Yes DS: Diagnosis Discharge Diagnosis (1) Chest pain: Status: Acute (2) Hypertension: Status: Acute (3) SARS-CoV-2 positive: Status: Acute DS: Summary Hospital Course Hospital Course: from admission history and physical by hospitalist Sarwat Kulkarni MD, 09/26/21: 56-year-old male with past medical history of diabetes, hypertension, coronary artery disease status post CABG presents to the hospital with complaints of left-sided chest pain.? Patient reports pain started on the day of presentation, constant, 7/10, is heavy in nature, radiating to his left arm, worse with inspiration and cough .? No relieving factors.? Patient reports that he also just recently had hemorrhoid repair surgery, and has significant pain in his rectum and some bleeding with bowel movements.? Patient is constipated.? He otherwise denies any shortness of breath, reports a mild dry cough that started this morning.? He? no abdominal pain nausea or vomiting, no diarrhea.? No urinary symptoms and no lower extremity edema.? No numbness or weakness. On arrival to the ED patient hemodynamically stable with no significant abnormal vitals Labs are significant for WBC of 6.3 hemoglobin of 12.7 with hematocrit of 38.3, troponin of 3.7 and 3.8, he is also COVID-19 positive Chest x-ray shows normal findings Patient is not hypoxic The patient was admitted to the hospitalist service. Chest pain resolved. There were no EKG chnages. Cardiology was consulted and recommended adding amlodipine 2.5mg daily for better control of blood pressure. 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 As for COVID-19 infection, he has had mild symptoms for 2 days (cough, congestion) but is not hypoxic and has had 2 doses of the Pfizer mRNA vaccine. Given risk factors of HTN, CAD, and DM, I recommend that he get outpatient monoclonal antibody through the [facility] program and advised him to contact his primary care doctor tomorrow to arrange this. HE was discharged home and should maintain standard 10-day COVID isolation precautions. Time Spent with Patient Time attestation: Total time spent providing and/or coordinating discharge services: 20 Discharge coordination time: Less than 30 minutes Quality: Stroke Does the patient have a stroke diagnosis?: No Physical Exam Vital Signs: Vital Signs: Last Vital Signs Temp 98.4 F 09/27/21 00:48 Pulse 61 09/27/21 08:23 Resp 16 09/27/21 07:35 BP 155/82 H 09/27/21 08:23 Pulse Ox 96 09/27/21 07:35 Body Mass Index 23.2 Gen: in no acute distress HEENT: sclera anicteric, moist mucus membranes Neck: supple Lungs: clear to auscultation bilaterally Heart: regular rate and rhythm, no murmurs Abd: soft, non-tender, non-distended Ext: no edema Skin: warm/well-perfused Neuro: alert and oriented x3, no focal findings Psych: appropriate affect DS: Data Data Completed and Pending Completed studies during hospitalization [Text1]: Laboratory Results WBC 6.1 X10*3/uL (4.8-10.8) 09/27/21 06:19 RBC 4.50 X10*6/uL (4.60-5.80) L 09/27/21 06:19 Hgb 12.8 g/dl (14.0-18.0) L 09/27/21 06:19 Hct 37.6 % (42.0-52.0) L 09/27/21 06:19 MCV 83.6 fL (80.0-98.0) 09/27/21 06:19 MCH 28.4 pg (27.0-33.0) 09/27/21 06:19 MCHC 34.0 g/dl (31.0-36.0) 09/27/21 06:19 RDW 13.7 % (11.0-16.0) 09/27/21 06:19 Plt Count 192 X10*3/uL (160-400) 09/27/21 06:19 MPV 11.2 fL (9.4-12.4) 09/27/21 06:19 Immature Gran % (Auto) 0.2 % (0.0-0.4) 09/27/21 06:19 Neut % (Auto) 56.8 % (45-73) 09/27/21 06:19 Lymph % (Auto) 27.5 % (20-40) 09/27/21 06:19 Wilkin % (Auto) 14.4 % (2-11) H 09/27/21 06:19 Eos % (Auto) 0.8 % (0-4) 09/27/21 06:19 Baso % (Auto) 0.3 % (0-2) 09/27/21 06:19 Lymph # (Auto) 1.7 X10*3/uL (1.2-4.9) 09/27/21 06:19 Wilkin # (Auto) 0.9 X10*3/uL (0.1-1.2) 09/27/21 06:19 Eos # (Auto) 0.1 X10*3/uL (0.0-0.4) 09/27/21 06:19 Baso # (Auto) 0.0 X10*3/uL (0.0-0.2) 09/27/21 06:19 Abs Immat Gran (auto) 0.01 X10*3/uL (0.00-0.03) 09/27/21 06:19 Absolute Neuts (auto) 3.5 x10*3/uL (2.0-8.3) 09/27/21 06:19 Absolute Nucleated RBC 0.000 X10*3/uL (0.0-0.012) 09/27/21 06:19 Nucleated RBC % (auto) 0.0 /100WBC (0.0-0.2) 09/27/21 06:19 PT 12.4 SEC (9.9-13.0) 09/26/21 20:48 INR 1.1 (0.9-1.1) 09/26/21 20:48 APTT 36.1 SEC (24.1-38.0) 09/26/21 22:00 D-Dimer High Sensitivty 157 NG/ML 09/26/21 20:48 Sodium 138 mmol/L (135-145) 09/27/21 06:19 Potassium 3.7 mmol/L (3.3-5.1) 09/27/21 06:19 Chloride 105 mmol/L (96-108) 09/27/21 06:19 Carbon Dioxide 23 mmol/L (22-29) 09/27/21 06:19 Anion Gap 14 (12-20) 09/27/21 06:19 BUN 7 mg/dL (9-16) L 09/27/21 06:19 Creatinine 0.72 mg/dL (0.5-1.4) 09/27/21 06:19 Estim Creat Clear Calc 109.5 09/27/21 06:19 Estimated GFR > 60 09/27/21 06:19 POC Glucose 112 mg/dL (60-115) 09/27/21 13:05 Random Glucose 127 mg/dL (60-115) H 09/27/21 06:19 Estimat Average Glucose 131 mg/dL 09/27/21 06:19 Hemoglobin A1c % 6.2 % 09/27/21 06:19 Calcium 9.7 mg/dL (8.4-10.2) 09/27/21 06:19 Troponin I High Sens 3.8 ng/L (<3.5-35.0) 09/26/21 22:37 COVID-19 ([facility]) Positive (Negative) A 09/27/21 01:00 COVID-19 Clin Com See Note 09/27/21 01:00 Impressions Chest X-Ray 09/26/21 20:45 IMPRESSION: Normal chest x-ray. Chest CTA 09/27/21 07:53 IMPRESSION: 1. No evidence of central or segmental pulmonary emboli. 2. No focal consolidation. VTE: negative Discharge Plan Discharge Patient Disposition: Home, Self-Care Discharge Diagnosis: chest pain/ruled out acute coronary syndrome COVID-19 without hypoxia Referrals: Riya Pelayo MD [Physician] - 1 Week Physician,Unknown J [Primary Care Provider] - 1 Week Discharge Medications: New amlodipine 2.5 mg tablet 2.5 mg PO DAILY Qty: 30 RF: 0 Continued tramadol 50 mg tablet 1 tab PO Q6H PRN (Reason: Pain) RF: 0 tamsulosin 0.4 mg capsule 1 cap PO DAILY RF: 0 pantoprazole 40 mg tablet,delayed release (DR/EC) 1 tab PO DAILY RF: 0 lorazepam 1 mg tablet 1 mg PO QID PRN (Reason: Anxiety) RF: 0 ibuprofen 600 mg tablet 600 tab PO DAILY RF: 0 metformin 500 mg tablet extended release 24 hr 2 tab PO BID RF: 0 oxycodone 5 mg tablet 1 tab PO QID PRN (Reason: Pain) RF: 0 rosuvastatin 20 mg tablet 1 tab PO BEDTIME RF: 0 metoprolol tartrate 25 mg tablet 1 tab PO BID RF: 0 lactulose 10 gram/15 mL solution 15 ml PO DAILY RF: 0 Januvia 100 mg tablet 1 tab PO DAILY RF: 0 levothyroxine 50 mcg tablet 1 tab PO DAILY RF: 0 aspirin 81 mg Tablet,Chewable 81 mg PO DAILY RF: 0 Discharge Orders: Discharge Order (Routine); Ordered 09/27/21 Ordered By: Tj Saldana Diet: advance to usual diet and diabetic diet Activity on Discharge: As tolerated Stand Alone Forms: Patient Portal Discharge page Care Plan Goals: chest pain, resolved hypertension prevention of severe COVID-19 Health Concerns: chest pain, resolved hypertension COVID-19 infection Plan of Treatment: take amlodipine 2.5 mg once daily for better control of high blood pressure given underlying diabetes, hypertension, and coronary heart disease, recommend referral [facility] for monoclonal antibody infusion to lower risk of progression to severe COVID-19 despite fully vaccinated status maintain isolation for 10 days at home beginning from onset of illness Assessment: as above Patient Instructions: COVID-19 (Coronavirus Disease 2019) (DC)
== END 2021-09-27 14:30 | disposition home or self-care (01) ==
LOC: HO.ED 21:28 → HO.EDOVER 23:26
PROVIDERS: Admitting Provider Internal Medicine; Emergency Provider Emergency Medicine; Visit Provider Family Medicine
DX: R07.9 Chest pain, unspecified (principal); I10 Essential (primary) hypertension; U07.1 COVID-19; I24.9 Acute ischemic heart disease, unspecified; I25.10 Atherosclerotic heart disease of native coronary artery without angina pectoris; R94.31 Abnormal electrocardiogram [ECG] [EKG]; E11.9 Type 2 diabetes mellitus without complications; E78.5 Hyperlipidemia, unspecified; K64.9 Unspecified hemorrhoids; Z20.822 Contact with and (suspected) exposure to COVID-19; Z95.1 Presence of aortocoronary bypass graft; Z83.3 Family history of diabetes mellitus; Z79.4 Long term (current) use of insulin; Z79.84 Long term (current) use of oral hypoglycemic drugs; Z79.891 Long term (current) use of opiate analgesic; Z79.899 Other long term (current) drug therapy
CPT/HCPCS: 36415; 71045; 71275; 80048; 82947; 83036; 84484; 85025; 85379; 85610; 85730; 87635; 93005; 96374; 99219; 99284; 99285; J2270; Q9967